=== PATIENT | female | born 1975 | race African-American/Black ===

== ENCOUNTER 2017-12-15 21:37 | Emergency (ER) | payer MEDICAID ==
[~2017-12-15] VITALS: Ht 170.2 cm; Wt 72.0 kg
[~2017-12-15 21:37] MED LIST: INSULIN; KEPPRA
[2017-12-15] MEDS ORDERED: ALBU05 NEB (22:07)
[2017-12-15] MEDS ORDERED: MORPHINE SULFATE 4 MG/ML CPJ (NOT FOR IM USE) IV STA (22:44)
[2017-12-15] MEDS ORDERED: ONDANSETRON HCL 4MG/2ML VIAL IV STA (22:44)
[2017-12-15 23:33] LABS: CHLORIDE 98 mEq/L (98-107)
[2017-12-15 23:34] LABS: BASOPHILS % 0.6 % (0.0-2.0); EOSINOPHILS % 1.9 % (0.0-5.0); HEMATOCRIT. 33.2 % (36.0-48.0); HEMOGLOBIN. 11.2 g/dL (12.0-16.0); LYMPHOCYTES % 20.1 % (20.0-50.0); MEAN CORPUSCULAR HEMOGLOBIN 28.4 pg (28.0-32.0); MEAN CORPUSCULAR VOLUME 84.2 fL (81.0-99.0); MEAN PLATELET VOLUME 8.4 fl (7.4-10.4); NEUTROPHILS % 67.4 % (40.0-76.0); PLATELET 242 x1000/uL (130-400); RED BLOOD CELL COUNT 3.94 mill/uL (4.2-5.4); RED CELL DISTRIBUTION WIDTH 12.9 % (11.6-14.6)
[2017-12-16] MEDS ORDERED: IOHEXOL-350 100 ML BOTTLE ONE (00:52)
[2017-12-16] MEDS ORDERED: MORPHINE SULFATE 4 MG/ML CPJ (NOT FOR IM USE) IV ONE (01:15)
[2017-12-16 03:18] VITALS: BP 129/78
== END 2017-12-16 03:22 | disposition short-term general hospital (02) ==
LOC: ER 21:42
DX: R07.89 Other chest pain (principal); D86.9 Sarcoidosis, unspecified; Z98.890 Other specified postprocedural states
CPT/HCPCS: 36415; 71045; 71275; 80053; 81025; 83880; 84484; 85025; 93005; 96374; 96375; 96376; 99285; J2270; J2405; Q9967; Z7610

== ENCOUNTER 2018-01-29 06:31 | Emergency (ER) | payer MEDICAID ==
[~2018-01-29] VITALS: Ht 160 cm; Wt 66.0 kg
[~2018-01-29 06:31] MED LIST changes: +ALBU05 NEB
[2018-01-29] MEDS ORDERED: IPRATROPIUM BROMIDE (0.02%) 0.5MG/2.5ML NEB HHN STA (08:25)
[2018-01-29] MEDS ORDERED: METHYLPREDNISOLONE SOD SUCC 125 MG/2 ML VIAL IV STA (08:25)
[2018-01-29] MEDS ORDERED: ALBUTEROL (0.083%) 2.5MG/3ML NEB HHN STA (08:25)
[2018-01-29 09:23] LABS: BASOPHILS % 0.5 % (0.0-2.0); EOSINOPHILS % 3.8 % (0.0-5.0); HEMATOCRIT. 33.5 % (36.0-48.0); HEMOGLOBIN. 11.2 g/dL (12.0-16.0); LYMPHOCYTES % 26.5 % (20.0-50.0); MEAN CORPUSCULAR HEMOGLOBIN 28.2 pg (28.0-32.0); MEAN PLATELET VOLUME 8.3 fl (7.4-10.4); MONOCYTES % 14.6 % (2.0-8.0); NEUTROPHILS % 54.6 % (40.0-76.0); PLATELET 211 x1000/uL (130-400); RED BLOOD CELL COUNT 3.99 mill/uL (4.2-5.4); RED CELL DISTRIBUTION WIDTH 14.1 % (11.6-14.6)
[2018-01-29 09:26] LABS: CHLORIDE 105 mEq/L (98-107)
[2018-01-29 09:27] LABS: PROTHROMBIN TIME 10.4 sec (9.1-11.1)
[2018-01-29] MEDS ORDERED: MORPHINE SULFATE 4 MG/ML CPJ (NOT FOR IM USE) IV ONE (09:45)
[2018-01-29 11:21] VITALS: BP 118/87
== END 2018-01-29 11:30 | disposition home or self-care (01) ==
LOC: ER 06:31
DX: R07.89 Other chest pain (principal); R00.0 Tachycardia, unspecified; D86.9 Sarcoidosis, unspecified; R03.0 Elevated blood-pressure reading, without diagnosis of hypertension; G40.909 Epilepsy, unspecified, not intractable, without status epilepticus; E11.9 Type 2 diabetes mellitus without complications; Z88.0 Allergy status to penicillin; Z79.4 Long term (current) use of insulin
CPT/HCPCS: 36415; 71045; 80053; 83880; 84484; 85025; 85610; 93005; 94644; 96374; 99285; J2930; J7611; Z7610

== ENCOUNTER 2018-03-24 07:17 | Emergency (ER) | payer MEDICAID ==
[~2018-03-24] VITALS: Ht 167.6 cm; Wt 75.0 kg
[2018-03-24] MEDS ORDERED: SODIUM CHLORIDE 0.9% 1,000 ML IV ONE (07:50)
[2018-03-24] MEDS ORDERED: KETOROLAC 30MG/ML VIAL IV STA (07:50)
[2018-03-24 08:24] LABS: CLARITY URINE CLEAR (CLEAR); COLOR URINE YELLOW (YELLOW); KETONES URINE NEGATIVE (NEGATIVE); LEUKOCYTE ESTERASE URINE NEGATIVE (NEGATIVE); NITRITE URINE NEGATIVE (NEGATIVE); OCCULT BLOOD URINE NEGATIVE (NEGATIVE); PROTEIN URINE TRACE (NEGATIVE); SPECIFIC GRAVITY URINE 1.009 (1.005-1.030); UROBILINOGEN URINE 0.2 E.U./dL (0.2-1.0)
[2018-03-24 08:42] LABS: BASOPHILS % 0.6 % (0.0-2.0); HEMATOCRIT. 27.9 % (36.0-48.0); HEMOGLOBIN. 9.4 g/dL (12.0-16.0); LYMPHOCYTES % 15.5 % (20.0-50.0); MEAN CORPUSCULAR HEMOGLOBIN 28.7 pg (28.0-32.0); MEAN CORPUSCULAR VOLUME 85.6 fL (81.0-99.0); MEAN PLATELET VOLUME 7.6 fl (7.4-10.4); MONOCYTES % 12.6 % (2.0-8.0); NEUTROPHILS % 67.3 % (40.0-76.0); PLATELET 223 x1000/uL (130-400); RED BLOOD CELL COUNT 3.26 mill/uL (4.2-5.4); RED CELL DISTRIBUTION WIDTH 15.6 % (11.6-14.6)
[2018-03-24 11:02] VITALS: BP 147/86
== END 2018-03-24 11:11 | disposition home or self-care (01) ==
LOC: ER 07:17
DX: M54.5 Low back pain (principal); A59.9 Trichomoniasis, unspecified; D86.9 Sarcoidosis, unspecified; Z88.0 Allergy status to penicillin
CPT/HCPCS: 36415; 80048; 81003; 81025; 85025; 96374; 99285; J1885; J7030

== ENCOUNTER 2018-03-28 23:00 | Emergency (ER) | payer MEDICAID ==
[~2018-03-28] VITALS: Ht 172.7 cm; Wt 73.0 kg
[2018-03-28] MEDS ORDERED: METHYLPREDNISOLONE SOD SUCC 125 MG/2 ML VIAL IV STA (23:18)
[2018-03-28] MEDS ORDERED: ALBUTEROL (0.083%) 2.5MG/3ML NEB HHN STA (23:18)
[2018-03-29 00:05] LABS: BASOPHILS % 0.4 % (0.0-2.0); EOSINOPHILS % 2.8 % (0.0-5.0); HEMATOCRIT. 27.3 % (36.0-48.0); HEMOGLOBIN. 9.4 g/dL (12.0-16.0); LYMPHOCYTES % 27.8 % (20.0-50.0); MEAN CORPUSCULAR HEMOGLOBIN 29.5 pg (28.0-32.0); MEAN CORPUSCULAR VOLUME 85.8 fL (81.0-99.0); MEAN PLATELET VOLUME 7.4 fl (7.4-10.4); MONOCYTES % 11.8 % (2.0-8.0); NEUTROPHILS % 57.2 % (40.0-76.0); PLATELET 225 x1000/uL (130-400); RED BLOOD CELL COUNT 3.18 mill/uL (4.2-5.4); RED CELL DISTRIBUTION WIDTH 15.8 % (11.6-14.6)
[2018-03-29 00:10] LABS: CHLORIDE 106 mEq/L (98-107)
[2018-03-29 00:17] LABS: ETHANOL BLOOD < 10 mg/dL
[2018-03-29] MEDS ORDERED: SODIUM CHLORIDE 0.9% 1,000 ML IV ONE (01:15)
[2018-03-29] MEDS ORDERED: LORAZEPAM 2MG/ML CPJ IV ONE (01:15)
[2018-03-29] MEDS ORDERED: ENOXAPARIN 80MG/0.8ML SYR SUBCUT ONE (03:00)
[2018-03-29 04:02] VITALS: BP 144/77
== END 2018-03-29 04:07 | disposition short-term general hospital (02) ==
LOC: ER 23:00
DX: J45.909 Unspecified asthma, uncomplicated (principal); R06.03 Acute respiratory distress; N28.9 Disorder of kidney and ureter, unspecified; D86.9 Sarcoidosis, unspecified; J98.11 Atelectasis; Z79.4 Long term (current) use of insulin; Z88.0 Allergy status to penicillin
CPT/HCPCS: 36415; 71045; 80053; 81025; 83880; 84484; 85025; 93005; 96372; 96374; 96375; 99285; G0482; J1650; J2060; J2930; J7030; J7611

== ENCOUNTER 2018-05-23 23:39 | Emergency (ER) | payer MEDICAID ==
[~2018-05-23] VITALS: Ht 172.7 cm; Wt 82.0 kg
[2018-05-24] MEDS ORDERED: IPRATROPIUM BROMIDE (0.02%) 0.5MG/2.5ML NEB HHN STA (00:30)
[2018-05-24] MEDS ORDERED: METHYLPREDNISOLONE SOD SUCC 125 MG/2 ML VIAL IV STA (00:30)
[2018-05-24 00:58] LABS: BASOPHILS % 0.3 % (0.0-2.0); CHLORIDE 102 mEq/L (98-107); EOSINOPHILS % 2.2 % (0.0-5.0); HEMATOCRIT. 27.5 % (36.0-48.0); HEMOGLOBIN. 9.3 g/dL (12.0-16.0); LYMPHOCYTES % 36.6 % (20.0-50.0); MEAN CORPUSCULAR HEMOGLOBIN 29.9 pg (28.0-32.0); MEAN CORPUSCULAR VOLUME 88.6 fL (81.0-99.0); MEAN PLATELET VOLUME 8.4 fl (7.4-10.4); MONOCYTES % 14.3 % (2.0-8.0); NEUTROPHILS % 46.6 % (40.0-76.0); PLATELET 195 x1000/uL (130-400); RED CELL DISTRIBUTION WIDTH 13.5 % (11.6-14.6)
[2018-05-24] MEDS: ALBUTEROL (0.083%) 2.5MG/3ML NEB HHN SCH ×2 (01:01→02:10)
[2018-05-24] MEDS ORDERED: KETOROLAC 30MG/ML VIAL IV ONE (01:30)
[2018-05-24] MEDS ORDERED: MORPHINE SULFATE 4 MG/ML CPJ (NOT FOR IM USE) IV ONE (02:30)
[2018-05-24] MEDS ORDERED: MORPHINE SULFATE 10 MG/ML CPJ ONE (02:48)
[2018-05-24 05:23] VITALS: BP 15/65
== END 2018-05-24 05:37 | disposition short-term general hospital (02) ==
LOC: ER 23:39
DX: D86.9 Sarcoidosis, unspecified (principal); E11.9 Type 2 diabetes mellitus without complications; R00.0 Tachycardia, unspecified; Z79.4 Long term (current) use of insulin; Z88.0 Allergy status to penicillin
CPT/HCPCS: 36415; 71045; 80053; 84484; 85025; 87804; 93005; 94640; 96374; 96375; 99285; J1885; J2270; J2930; J7611

== ENCOUNTER 2018-08-17 04:10 | Emergency (ER) | payer MEDICAID ==
[~2018-08-17] VITALS: Ht 170.2 cm; Wt 68.0 kg
[2018-08-17] MEDS ORDERED: ONDANSETRON HCL 4MG/2ML INJ IV STA (04:39)
[2018-08-17] MEDS ORDERED: METHYLPREDNISOLONE SOD SUCC 125 MG/2 ML VIAL IV STA (04:39)
[2018-08-17] MEDS ORDERED: MORPHINE SULFATE 4 MG/ML CPJ (NOT FOR IM USE) IV STA (04:39)
[2018-08-17] MEDS ORDERED: LEVOFLOXACIN 750MG PREMIX 150 ML IV ONE (04:45)
[2018-08-17] MEDS ORDERED: IPRATROPIUM/ALBUTEROL 0.5-3(2.5)MG/3ML NEB HHN ONE (04:45)
[2018-08-17 05:28] LABS: BASOPHILS % 0.7 % (0.0-2.0); EOSINOPHILS % 5.9 % (0.0-5.0); HEMATOCRIT. 31.2 % (36.0-48.0); HEMOGLOBIN. 10.2 g/dL (12.0-16.0); LYMPHOCYTES % 19.7 % (20.0-50.0); MEAN CORPUSCULAR HEMOGLOBIN 28.6 pg (28.0-32.0); MEAN CORPUSCULAR VOLUME 87.4 fL (81.0-99.0); MEAN PLATELET VOLUME 8.5 fl (7.4-10.4); MONOCYTES % 13.2 % (2.0-8.0); NEUTROPHILS % 60.5 % (40.0-76.0); PLATELET 244 x1000/uL (130-400); RED BLOOD CELL COUNT 3.57 mill/uL (4.2-5.4); RED CELL DISTRIBUTION WIDTH 15.6 % (11.6-14.6)
[2018-08-17 05:38] LABS: CHLORIDE 109 mEq/L (98-107)
[2018-08-17 05:40] LABS: HCG SCREEN NEGATIVE
[2018-08-17 05:44] LABS: D-DIMER 2.2 mg/L FEU (<0.50); PARTIAL THROMBOPLASTIN TIME 26.9 sec (23.4-31.0); PROTHROMBIN TIME 10.3 sec (9.1-11.1)
[2018-08-17 06:34] LABS: BG BASE EXCESS -1.8 mmol/L (-2.0-2.0); BG CARBOXYHEMOGLOBIN 0.3 % (0.5-1.5); BG DEOXYHEMOGLOBIN 1.7 % (0.0-5.0); BG HCO3 ACT 21.5 mmol/L (22.0-26.0); BG METHEMOGLOBIN 0.2 % (0.0-1.5); BG OXYGEN SATURATION 98.3 % (92.0-98.5); BG OXYHEMOGLOBIN 97.8 % (94.0-97.0); BG PCO2 31.1 mmHg (35.0-45.0); BG PH 7.457 (7.350-7.450); BG PO2 130.1 mmHg (75.0-100.0); BG SAMPLE SITE RIGHT RADIAL; BG TOTAL HEMOGLOBIN 9.5 g/dL (12.0-18.0); BG VENT MODE ROOM AIR
[2018-08-17 12:55] VITALS: BP 105/75
== END 2018-08-17 13:16 | disposition short-term general hospital (02) ==
LOC: ER 04:10 → CANBEDREQ 13:51
DX: R06.02 Shortness of breath (principal); R05 Cough; M79.10 Myalgia, unspecified site
CPT/HCPCS: 36415; 36600; 71045; 78582; 80053; 82375; 82805; 83605; 83880; 84484; 84703; 85025; 85379; 85610; 85730; 87040; 93005; 93970; 94640; 96365; 96366; 96375; 99285; A9540; A9558; J1956; J2270; J2405; J2930; J7620; Z7610